=== PATIENT | male | born 1940 | race African-American/Black ===

== ENCOUNTER 2020-11-04 13:29 | Inpatient (IN) | payer MEDICARE ==
[~2020-11-04] VITALS: Ht 177.8 cm; Wt 63.5 kg
[~2020-11-04 13:29] MED LIST: AZOR PEG; BUSPAR PEG; LISINOPRIL PEG; PRINIVIL PEG
[2020-11-04] MEDS ORDERED: SODIUM CHLORIDE 0.9% 1000ML 1,000 ML IV STA ×2 (13:30→14:19)
[2020-11-04] MEDS ORDERED: VANCOMYCIN 1GM/NS 250 ML 250 ML IV ONE (14:00)
[2020-11-04 14:09] LABS: BASOPHILS % 0.2 % (0.0-1.0); HEMATOCRIT 21.5 % (38.2-49.6); HEMOGLOBIN 7.2 g/dL (14.0-18.0); LYMPHOCYTES # (AUTO) 0.2 (1.0-3.2); LYMPHOCYTES % 4.3 % (18.0-39.1); MEAN CORPUSCULAR HEMOGLOBIN 30.4 pg (28-32); MEAN CORPUSCULAR HGB CONC 33.5 g/dL (31-35); MEAN CORPUSCULAR VOLUME 90.7 fL (81-99); MONOCYTES # (AUTO) 0.2 (0.2-0.8); MONOCYTES % 2.7 % (4.4-11.3); NEUTROPHILS # (AUTO) 5.2 (2.1-6.9); NEUTROPHILS % 92.6 % (38.7-80.0); PLATELET COUNT 144 x10e3/uL (140-360); RED BLOOD COUNT 2.37 x10e6/uL (4.3-5.7); RED CELL DISTRIBUTION WIDTH 17.2 % (11.7-14.4)
[2020-11-04 14:23] LABS: INR 0.9; PROTHROMBIN TIME 12.7 seconds (11.9-14.5)
[2020-11-04 14:24] LABS: PARTIAL THROMBOPLASTIN TIME 39.6 seconds (23.8-35.5)
[2020-11-04] MEDS: MEROPENEM 1GM 100 ML IV ONE ×2 (14:30→17:45)
[2020-11-04 14:32] LABS: ALANINE AMINOTRANSFERASE 64 IU/L (0-55); ALBUMIN 2.3 g/dL (3.5-5.0); ALBUMIN/GLOBULIN RATIO 0.6 (0.8-2.0); ALKALINE PHOSPHATASE 95 IU/L (40-150); ANION GAP 14.4 mmol/L (8-16); BLOOD UREA NITROGEN 20 mg/dL (7-26); BUN/CREATININE RATIO 36 (6-25); CALCIUM 9.6 mg/dL (8.4-10.2); CARBON DIOXIDE 29 mmol/L (22-29); CHLORIDE 89 mmol/L (98-107); CREATINE KINASE 102 IU/L (30-200); CREATININE, SERUM 0.55 mg/dL (0.72-1.25); EST GLOMERULAR FILTRATION RATE > 60 ML/MIN (60-); GLUCOSE 104 mg/dL (74-118); MAGNESIUM 1.7 MG/DL (1.3-2.1); POTASSIUM 4.4 mmol/L (3.5-5.1); SODIUM 128 mmol/L (136-145)
[2020-11-04 14:38] LABS: CLARITY,URINE SL CLOUDY (CLEAR); COLOR,URINE YELLOW (YELLOW); KETONES,URINE NEGATIVE (NEGATIVE); LEUKOCYTE ESTERASE ,URINE SMALL (NEGATIVE); NITRITE,URINE NEGATIVE (NEGATIVE); PROTEIN,URINE DIPSTICK NEGATIVE (NEGATIVE); URINE UROBILINOGEN 0.2 mg/dL (0.2 - 1)
[2020-11-04 14:48] LABS: BACTERIA,URINE MANY /HPF; RBC,URINE 0-5 /HPF (0-5)
[2020-11-04] MEDS: SODIUM CHLORIDE 0.9% 1000ML 1,000 ML IV SCH ×2 (15:15→21:07)
[2020-11-04] MEDS ORDERED: SODIUM CHLORIDE 0.9% 100 ML ONE (15:32)
[2020-11-04] MEDS ORDERED: VASOPRESSIN INJ 20 UNIT/ML VIAL ONE (15:32)
[2020-11-04] MEDS ORDERED: VASOPRESSIN IV STA (15:44)
[2020-11-04] MEDS ORDERED: DEXTROSE 5% IV STA (15:44)
[2020-11-04 17:41] LABS: LYMPHOCYTES % (MANUAL) 8 % (19-48); MONOCYTES % (MANUAL) 3 % (3.4-9.0); NEUTROPHILS % (MANUAL) 88 % (40-74); PLATELET ESTIMATE ADEQUATE; PLATELET MORPHOLOGY COMMENT FEW LARGE; RBC MORPHOLOGY COMMENT NORMAL; STOMATOCYTES SLIGHT
[2020-11-04] MEDS ORDERED: VANCOMYCIN 1GM/NS 250 ML 250 ML IV SCH (23:00)
[2020-11-04] MEDS ORDERED: MEROPENEM 500MG/ NS 50ML 50 ML IV SCH (23:00)
[2020-11-05] VITALS (14 sets, daily range): BP systolic 97–140; BP diastolic 48–78
[2020-11-05] MEDS ORDERED: ACETAMINOPHEN 325 MG TAB PO PRN (07:00)
[2020-11-05] MEDS ORDERED: ONDANSETRON HCL INJ 2MG/ML 2ML 2 MG/ML VIAL IV PRN (07:00)
[2020-11-05] MEDS: SODIUM CHLORIDE 0.9% 1000ML 1,000 ML IV SCH (08:26)
[2020-11-05 08:53] LABS: CREATINE KINASE MB 16.9 ng/mL (0-5.0)
[2020-11-05] MEDS: SENNOSIDES 8.6 MG TAB PO SCH (09:00)
[2020-11-05] MEDS: DOCUSATE SODIUM LIQD 100 MG/10 ML UDC NG SCH (09:00)
[2020-11-05 09:16] LABS: LYMPHOCYTES # (AUTO) 0.4 (1.0-3.2); LYMPHOCYTES % 5.3 % (18.0-39.1); MEAN CORPUSCULAR HEMOGLOBIN 30.7 pg (28-32); MEAN CORPUSCULAR HGB CONC 34.4 g/dL (31-35); MEAN CORPUSCULAR VOLUME 89.2 fL (81-99); MONOCYTES # (AUTO) 0.7 (0.2-0.8); MONOCYTES % 9.3 % (4.4-11.3); NEUTROPHILS # (AUTO) 6.3 (2.1-6.9); PLATELET COUNT 161 x10e3/uL (140-360); RED BLOOD COUNT 2.12 x10e6/uL (4.3-5.7); RED CELL DISTRIBUTION WIDTH 16.9 % (11.7-14.4)
[2020-11-05 09:23] LABS: HEMATOCRIT 18.9 % (38.2-49.6); HEMOGLOBIN 6.5 g/dL (14.0-18.0)
[2020-11-05 09:27] LABS: ALANINE AMINOTRANSFERASE 67 IU/L (0-55); ALBUMIN 2.1 g/dL (3.5-5.0); ALBUMIN/GLOBULIN RATIO 0.6 (0.8-2.0); ALKALINE PHOSPHATASE 76 IU/L (40-150); ANION GAP 12.2 mmol/L (8-16); BLOOD UREA NITROGEN 20 mg/dL (7-26); BUN/CREATININE RATIO 29 (6-25); CALCIUM 8.6 mg/dL (8.4-10.2); CARBON DIOXIDE 28 mmol/L (22-29); CHLORIDE 92 mmol/L (98-107); EST GLOMERULAR FILTRATION RATE > 60 ML/MIN (60-); GLUCOSE 69 mg/dL (74-118); POTASSIUM 4.2 mmol/L (3.5-5.1); SODIUM 128 mmol/L (136-145)
[2020-11-05] MEDS ORDERED: SODIUM CHLORIDE 0.9% 250ML 250 ML IV ONE (09:45)
[2020-11-05] MEDS ORDERED: LORAZEPAM INJ 2 MG/ML VIAL ONE (10:08)
[2020-11-05] MEDS: MEROPENEM 500MG/ NS 50ML 50 ML IV SCH ×3 (12:52→20:48)
[2020-11-05] MEDS: VANCOMYCIN 1GM/NS 250 ML 250 ML IV SCH (14:05)
[2020-11-05] MEDS ORDERED: LEVETIRACETAM 500MG/5ML VIAL 1,000 MG in SODIUM CHLORIDE 0.9% 100 ML 100 ML IV ONE (14:30)
[2020-11-05 15:11] LABS: ABG PH 7.48 (7.35-7.45)
[2020-11-05 15:12] LABS: ABG HCO3 32 mmol/L (22-26); ABG PCO2 43 mmHg (35-45); ABG PO2 529 mmHg (80-105); ABG TCO2 33
[2020-11-05] MEDS: NOREPINEPHRINE 8 MG/D5W 250 ML 250 ML IV SCH (15:30)
[2020-11-05] MEDS ORDERED: SODIUM CHLORIDE 0.9% 250ML 250 ML ONE (16:12)
[2020-11-06] VITALS (15 sets, daily range): BP systolic 101–141; BP diastolic 56–77
[2020-11-06] MEDS: VANCOMYCIN 1GM/NS 250 ML 250 ML IV SCH ×2 (02:27→14:05)
[2020-11-06] MEDS: SODIUM CHLORIDE 0.9% 1000ML 1,000 ML IV SCH (04:37)
[2020-11-06 05:02] LABS: BASOPHILS % 0.1 % (0.0-1.0); EOSINOPHILS % 0.1 % (0.0-6.0); HEMATOCRIT 24.8 % (38.2-49.6); HEMOGLOBIN 8.5 g/dL (14.0-18.0); LYMPHOCYTES # (AUTO) 0.7 (1.0-3.2); LYMPHOCYTES % 8.8 % (18.0-39.1); MEAN CORPUSCULAR HEMOGLOBIN 29.9 pg (28-32); MEAN CORPUSCULAR HGB CONC 34.3 g/dL (31-35); MEAN CORPUSCULAR VOLUME 87.3 fL (81-99); MONOCYTES # (AUTO) 0.6 (0.2-0.8); NEUTROPHILS # (AUTO) 6.2 (2.1-6.9); NEUTROPHILS % 82.7 % (38.7-80.0); PLATELET COUNT 109 x10e3/uL (140-360); RED BLOOD COUNT 2.84 x10e6/uL (4.3-5.7); RED CELL DISTRIBUTION WIDTH 15.9 % (11.7-14.4)
[2020-11-06 05:25] LABS: CREATINE KINASE MB 13.4 ng/mL (0-5.0)
[2020-11-06 05:26] LABS: ANION GAP 9.8 mmol/L (8-16); BLOOD UREA NITROGEN 16 mg/dL (7-26); BUN/CREATININE RATIO 25 (6-25); CALCIUM 8.3 mg/dL (8.4-10.2); CARBON DIOXIDE 25 mmol/L (22-29); CHLORIDE 99 mmol/L (98-107); CREATININE, SERUM 0.65 mg/dL (0.72-1.25); EST GLOMERULAR FILTRATION RATE > 60 ML/MIN (60-); GLUCOSE 91 mg/dL (74-118); POTASSIUM 3.8 mmol/L (3.5-5.1); SODIUM 130 mmol/L (136-145)
[2020-11-06] MEDS: MEROPENEM 500MG/ NS 50ML 50 ML IV SCH ×3 (06:04→22:32)
[2020-11-06 06:18] LABS: FERRITIN 231.96 ng/mL (21.81-274.66)
[2020-11-06] MEDS: LEVETIRACETAM 500 MG TAB PO SCH ×2 (08:05→16:33)
[2020-11-06] MEDS: DOCUSATE SODIUM LIQD 100 MG/10 ML UDC NG SCH (08:05)
[2020-11-06] MEDS: SENNOSIDES 8.6 MG TAB PO SCH (08:05)
[2020-11-06 09:46] LABS: FREE THYROXINE INDEX 1.1337 (1.4-3.8); THYROID STIMULATING HORMONE 20.455 uIU/mL (0.350-4.940)
[2020-11-06] MEDS: NOREPINEPHRINE 8 MG/D5W 250 ML 250 ML IV SCH (14:00)
[2020-11-06] MEDS: HEPARIN SOD (PORCINE) 5,000 UNIT/ML VIAL SC SCH (22:32)
[2020-11-07] VITALS (17 sets, daily range): BP systolic 111–146; BP diastolic 46–85
[2020-11-07] MEDS: SODIUM CHLORIDE 0.9% 1000ML 1,000 ML IV SCH ×2 (00:06→20:13)
[2020-11-07] MEDS: VANCOMYCIN 1GM/NS 250 ML 250 ML IV SCH (02:24)
[2020-11-07] MEDS: MEROPENEM 500MG/ NS 50ML 50 ML IV SCH ×3 (05:52→21:24)
[2020-11-07 06:15] LABS: BASOPHILS % 0.2 % (0.0-1.0); EOSINOPHILS % 0.3 % (0.0-6.0); HEMATOCRIT 22.9 % (38.2-49.6); HEMOGLOBIN 7.8 g/dL (14.0-18.0); LYMPHOCYTES # (AUTO) 0.6 (1.0-3.2); LYMPHOCYTES % 10.6 % (18.0-39.1); MEAN CORPUSCULAR HEMOGLOBIN 30.5 pg (28-32); MEAN CORPUSCULAR HGB CONC 34.1 g/dL (31-35); MEAN CORPUSCULAR VOLUME 89.5 fL (81-99); MONOCYTES # (AUTO) 0.5 (0.2-0.8); MONOCYTES % 8.7 % (4.4-11.3); NEUTROPHILS # (AUTO) 4.6 (2.1-6.9); PLATELET COUNT 85 x10e3/uL (140-360); RED BLOOD COUNT 2.56 x10e6/uL (4.3-5.7); RED CELL DISTRIBUTION WIDTH 16.3 % (11.7-14.4)
[2020-11-07 06:36] LABS: ALANINE AMINOTRANSFERASE 63 IU/L (0-55); ALBUMIN 1.6 g/dL (3.5-5.0); ALBUMIN/GLOBULIN RATIO 0.5 (0.8-2.0); ALKALINE PHOSPHATASE 65 IU/L (40-150); ANION GAP 8.4 mmol/L (8-16); BLOOD UREA NITROGEN 16 mg/dL (7-26); BUN/CREATININE RATIO 29 (6-25); CALCIUM 7.8 mg/dL (8.4-10.2); CARBON DIOXIDE 25 mmol/L (22-29); CHLORIDE 105 mmol/L (98-107); CREATININE, SERUM 0.55 mg/dL (0.72-1.25); EST GLOMERULAR FILTRATION RATE > 60 ML/MIN (60-); GLUCOSE 76 mg/dL (74-118); POTASSIUM 3.4 mmol/L (3.5-5.1); SODIUM 135 mmol/L (136-145)
[2020-11-07 06:57] LABS: CREATINE KINASE MB 5.4 ng/mL (0-5.0)
[2020-11-07] MEDS: DOCUSATE SODIUM LIQD 100 MG/10 ML UDC NG SCH (08:10)
[2020-11-07] MEDS: HEPARIN SOD (PORCINE) 5,000 UNIT/ML VIAL SC SCH ×2 (08:10→21:24)
[2020-11-07] MEDS: SENNOSIDES 8.6 MG TAB PO SCH (08:10)
[2020-11-07] MEDS: LEVETIRACETAM 500 MG TAB PO SCH (08:10)
[2020-11-07] MEDS: BALSAM PERU/CASTOR OIL 60 GM OINT...G. TP SCH (08:11)
[2020-11-07] MEDS: LINEZOLID 600 MG/D5W 300ML 300 ML IV SCH ×2 (08:13→19:54)
[2020-11-07] MEDS: NOREPINEPHRINE 8 MG/D5W 250 ML 250 ML IV SCH (10:50)
[2020-11-07] MEDS ORDERED: KCL 20 MEQ PACKET/ ORAL SOLN NG ONE (16:30)
[2020-11-07] MEDS: LEVETIRACETAM ORAL SOLUTION 500 MG/5 ML SOLN PEG SCH (16:43)
[2020-11-07] MEDS: OXCARBAZEPINE 300 MG TAB PO SCH (16:43)
[2020-11-07] MEDS ORDERED: LEVETIRACETAM 500 MG TAB PO SCH (17:00)
[2020-11-08] VITALS (21 sets, daily range): BP systolic 95–141; BP diastolic 50–75
[2020-11-08] MEDS: MEROPENEM 500MG/ NS 50ML 50 ML IV SCH ×3 (08:07→20:53)
[2020-11-08] MEDS: DOCUSATE SODIUM LIQD 100 MG/10 ML UDC NG SCH (08:27)
[2020-11-08] MEDS: SENNOSIDES 8.6 MG TAB PO SCH (08:27)
[2020-11-08] MEDS: OXCARBAZEPINE 300 MG TAB PO SCH ×2 (08:27→17:54)
[2020-11-08] MEDS: LEVETIRACETAM ORAL SOLUTION 500 MG/5 ML SOLN PEG SCH ×2 (08:27→17:54)
[2020-11-08] MEDS: LINEZOLID 600 MG/D5W 300ML 300 ML IV SCH ×2 (08:27→20:00)
[2020-11-08] MEDS: HEPARIN SOD (PORCINE) 5,000 UNIT/ML VIAL SC SCH ×2 (08:28→20:03)
[2020-11-08] MEDS: BALSAM PERU/CASTOR OIL 60 GM OINT...G. TP SCH (08:31)
[2020-11-08] MEDS: SODIUM CHLORIDE 0.9% 1000ML 1,000 ML IV SCH ×2 (14:03→18:34)
[2020-11-09] VITALS (11 sets, daily range): BP systolic 116–153; BP diastolic 59–87
[2020-11-09 04:46] LABS: BASOPHILS % 0.2 % (0.0-1.0); EOSINOPHILS % 0.7 % (0.0-6.0); HEMATOCRIT 24.8 % (38.2-49.6); HEMOGLOBIN 8.2 g/dL (14.0-18.0); LYMPHOCYTES # (AUTO) 0.9 (1.0-3.2); LYMPHOCYTES % 16.5 % (18.0-39.1); MEAN CORPUSCULAR HEMOGLOBIN 30.3 pg (28-32); MEAN CORPUSCULAR HGB CONC 33.1 g/dL (31-35); MEAN CORPUSCULAR VOLUME 91.5 fL (81-99); MONOCYTES # (AUTO) 0.4 (0.2-0.8); MONOCYTES % 6.1 % (4.4-11.3); NEUTROPHILS # (AUTO) 4.4 (2.1-6.9); NEUTROPHILS % 76.3 % (38.7-80.0); PLATELET COUNT 107 x10e3/uL (140-360); RED BLOOD COUNT 2.71 x10e6/uL (4.3-5.7); RED CELL DISTRIBUTION WIDTH 16.2 % (11.7-14.4)
[2020-11-09 05:06] LABS: ALANINE AMINOTRANSFERASE 50 IU/L (0-55); ALBUMIN 1.6 g/dL (3.5-5.0); ALBUMIN/GLOBULIN RATIO 0.4 (0.8-2.0); ALKALINE PHOSPHATASE 68 IU/L (40-150); ANION GAP 9.4 mmol/L (8-16); BLOOD UREA NITROGEN 15 mg/dL (7-26); BUN/CREATININE RATIO 26 (6-25); CALCIUM 8.3 mg/dL (8.4-10.2); CARBON DIOXIDE 29 mmol/L (22-29); CHLORIDE 102 mmol/L (98-107); CREATININE, SERUM 0.57 mg/dL (0.72-1.25); EST GLOMERULAR FILTRATION RATE > 60 ML/MIN (60-); GLUCOSE 86 mg/dL (74-118); POTASSIUM 4.4 mmol/L (3.5-5.1); SODIUM 136 mmol/L (136-145)
[2020-11-09] MEDS: MEROPENEM 500MG/ NS 50ML 50 ML IV SCH ×2 (06:33→14:11)
[2020-11-09] MEDS: LINEZOLID 600 MG/D5W 300ML 300 ML IV SCH (07:36)
[2020-11-09] MEDS: BALSAM PERU/CASTOR OIL 60 GM OINT...G. TP SCH (07:36)
[2020-11-09] MEDS: LEVETIRACETAM ORAL SOLUTION 500 MG/5 ML SOLN PEG SCH ×2 (07:44→16:37)
[2020-11-09] MEDS: DOCUSATE SODIUM LIQD 100 MG/10 ML UDC NG SCH (07:44)
[2020-11-09] MEDS: SENNOSIDES 8.6 MG TAB PO SCH (07:44)
[2020-11-09] MEDS: OXCARBAZEPINE 300 MG TAB PO SCH ×2 (07:44→16:37)
[2020-11-09] MEDS: HEPARIN SOD (PORCINE) 5,000 UNIT/ML VIAL SC SCH (07:45)
[2020-11-09] MEDS ORDERED: HEPARIN SOD (PORCINE) 1000 UNIT/ML 10ML MDV IV ONE (15:15)
[2020-11-09] MEDS ORDERED: HEPARIN 500 UNITS/5ML MDV INJ ONE (15:30)
== END 2020-11-09 17:09 | DRG 871 ==
LOC: ER 13:35 → ERHOLD 15:25 → ICU 11-05 10:28
PROVIDERS: ADMIT Internal Medicine; ATTEND Internal Medicine
PROC: 02HV33Z Insertion of Infusion Device into Superior Vena Cava, Percutaneous Approach (ICD-10-PCS; 2020-11-04)
PROC: B548ZZA Ultrasonography of Superior Vena Cava, Guidance (ICD-10-PCS; 2020-11-04)
PROC: 5A1945Z Respiratory Ventilation, 24-96 Consecutive Hours (ICD-10-PCS; principal; 2020-11-05)
PROC: 30233N1 Transfusion of Nonautologous Red Blood Cells into Peripheral Vein, Percutaneous Approach (ICD-10-PCS; 2020-11-05)
DX: A41.9 Sepsis, unspecified organism (principal); R65.21 Severe sepsis with septic shock; J18.9 Pneumonia, unspecified organism; G92 Toxic encephalopathy; E43 Unspecified severe protein-calorie malnutrition; J96.20 Acute and chronic respiratory failure, unspecified whether with hypoxia or hypercapnia; E87.2 Acidosis; Z68.1 Body mass index [BMI] 19.9 or less, adult; N39.0 Urinary tract infection, site not specified; E87.1 Hypo-osmolality and hyponatremia; M62.82 Rhabdomyolysis; Z16.22 Resistance to vancomycin related antibiotics; Z95.810 Presence of automatic (implantable) cardiac defibrillator; E03.9 Hypothyroidism, unspecified; R53.81 Other malaise; Z87.891 Personal history of nicotine dependence; I10 Essential (primary) hypertension; E78.5 Hyperlipidemia, unspecified; Z20.822 Contact with and (suspected) exposure to COVID-19; B95.2 Enterococcus as the cause of diseases classified elsewhere; D64.9 Anemia, unspecified
CPT/HCPCS: 36415; 36569; 36600; 70450; 71045; 72125; 74176; 80048; 80053; 81001; 82140; 82550; 82553; 82607; 82728; 82805; 82948; 83540; 83605; 83735; 84436; 84443; 84466; 84479; 84484; 85025; 85610; 85730; 86850; 86900; 86920; 87040; 87086; 87186; 93005; 94002; 94003; 95819; 97139; 99251; 99285; J1644; J2020; J2060; J3370; J7030; J7050; P9016; U0002